=== PATIENT | male | born 1985 | race African-American/Black ===

== ENCOUNTER 2018-04-27 06:38 | Emergency (ER) | payer SELFPAY, MEDICAID ==
[2018-04-27] MEDS: predniSONE 20 MG TAB PO (07:54)
[2018-04-27] MEDS: IPRATROPIUM 0.5MG/ALBUTEROL 2.5MG INH SOL UD 3ML (DUONEB)(J7620) NEB (08:05)
== END 2018-04-27 08:24 | disposition home or self-care (01) ==
LOC: M ED 06:38
DX: J06.9 Acute upper respiratory infection, unspecified (principal); F17.200 Nicotine dependence, unspecified, uncomplicated
CPT/HCPCS: 71046

== ENCOUNTER → 2018-09-19 | Outpatient (CLI) | payer SELFPAY ==
[~2018-09-19] MED LIST: IPRA0.00 NEB; PRED20TA PO; ZITHTAB PO
== END ==
LOC: M OUTALCOH 07:52
PROVIDERS: ATTEND Psychiatry & Neurology Psychiatry
DX: Z03.89 Encounter for observation for other suspected diseases and conditions ruled out (principal)

== ENCOUNTER 2019-06-08 11:35 | Emergency (ER) | payer OTHER, SELFPAY ==
[~2019-06-08] VITALS: Ht 177.8 cm; Wt 78.0 kg
[2019-06-08 11:35] VITALS: BP 138/95
[2019-06-08] MEDS ORDERED: CLEO300C2 PO (13:29)
[2019-06-08] MEDS ORDERED: KETO10TAB PO (13:29)
[2019-06-08] MEDS ORDERED: CLINDAMYCIN 150 MG CAP PO ONE (13:30)
[2019-06-08] MEDS ORDERED: KETOROLAC TROMETHAMINE 10 MG TAB PO ONE (13:30)
== END 2019-06-08 13:36 | disposition home or self-care (01) ==
LOC: M ED 11:35
DX: K04.7 Periapical abscess without sinus (principal); K08.89 Other specified disorders of teeth and supporting structures

== ENCOUNTER 2020-03-30 22:20 | Inpatient (IN) | payer OTHER ==
[~2020-03-30 22:20] MED LIST changes: +BOOSTRIX/ADACEL VACCINE (DIPHTH/PERTUSS/ACELL/TETANUS) 0.5ML SYR As Ordered ONE; +BOOSTRIX/ADACEL VACCINE (DIPHTH/PERTUSS/ACELL/TETANUS) 0.5ML SYR ONE; +CLEO300C2 PO; +HYDROMORPHONE HCL 0.5 MG/ 0.5 ML SYRINGE (J1170 PER 1) As Ordered ONE; +HYDROMORPHONE HCL 0.5 MG/ 0.5 ML SYRINGE (J1170 PER 1) ONE; +ISOVUE-370 76% 100ML VIAL As Ordered ONE; +KETO10TAB PO; +MORPHINE 2 MG/ML 1ML VIAL (J2270) As Ordered ONE; +MORPHINE 2 MG/ML 1ML VIAL (J2270) ONE; +UNASYN 3 GM VIAL As Ordered ONE; +UNASYN 3 GM VIAL ONE
[2020-03-31] MEDS ORDERED: ceFAZolin 2 GM/D5W 50 ML IV BAG (J0690 PER 500MG) As Ordered ONE
[2020-03-31] MEDS ORDERED: BUPIVACAINE HCL 0.5% 30 ML VIAL As Ordered ONE
[2020-03-31] MEDS ORDERED: propofoL 200 MG/20 ML VIAL As Ordered ONE (00:13)
[2020-03-31] MEDS ORDERED: HYDROmorphone HCL 2 MG/ML 1ML VIAL (J1170) As Ordered ONE (00:13)
[2020-03-31] MEDS ORDERED: fentaNYL 100 MCG/2 ML INJECTION (J3010) As Ordered ONE (00:13)
[2020-03-31] MEDS ORDERED: MIDAZOLAM INJ 2MG/2ML VIAL (J2250 PER 1MG) As Ordered ONE (00:13)
[2020-03-31] MEDS ORDERED: LIDOCAINE 2% 100MG/5ML SDV (FOR ANES.) As Ordered ONE (00:13)
[2020-03-31] MEDS ORDERED: ONDANSETRON 4MG/2ML VIAL As Ordered ONE (00:13)
[2020-03-31] MEDS ORDERED: dexameTHASONE 4 MG/ML 1ML VIAL (J1100 PER 1MG) As Ordered ONE (00:13)
[2020-03-31] MEDS ORDERED: KETOROLAC 60MG 2ML VIAL As Ordered ONE (00:13)
[2020-03-31] MEDS ORDERED: UNASYN 3 GM VIAL ONE ×2 (04:26→09:01)
[2020-03-31] MEDS ORDERED: UNASYN 3 GM VIAL As Ordered ONE ×2 (04:26→09:02)
[2020-03-31] MEDS ORDERED: KETOROLAC 30 MG/ML 1ML VIAL As Ordered ONE (04:26)
[2020-03-31] MEDS ORDERED: KETOROLAC 30 MG/ML 1ML VIAL ONE (04:26)
[2020-03-31] MEDS ORDERED: MORPHINE 4 MG/ML 1ML VIAL/SYRINGE (J2270) As Ordered ONE (05:43)
[2020-03-31] MEDS ORDERED: MORPHINE 4 MG/ML 1ML VIAL/SYRINGE (J2270) ONE (05:43)
[2020-03-31] MEDS ORDERED: PANTOPRAZOLE 40MG VIAL (C9113 PER 1) ONE (09:01)
[2020-03-31] MEDS ORDERED: PANTOPRAZOLE 40MG VIAL (C9113 PER 1) As Ordered ONE (09:01)
[2020-04-28 11:02] LABS: APPEARANCE, URINE CLEAR (CLEAR); COLOR, URINE YELLOW (YELLOW)
[2020-04-28 11:03] LABS: BACTERIA, URINE AUTO NEGATIVE (NEGATIVE); BILIRUBIN, URINE AUTO NEGATIVE (NEGATIVE); BLOOD, URINE BLOOD NEGATIVE (NEGATIVE); GLUCOSE, URINE (UA) AUTO NEGATIVE (NEGATIVE); KETONE, URINE AUTO TRACE mg/dL (NEGATIVE); LEUKOCYTE ESTERASE, URINE AUTO NEGATIVE (NEGATIVE); MUCUS, URINE SMALL (NEGATIVE); NITRITE, URINE AUTO NEGATIVE (NEGATIVE); PROTEIN, URINE AUTO 1+ mg/dL (NEGATIVE); RBC, URINE AUTO 68 /HPF (0-3); SPECIFIC GRAVITY URINE AUTO 1.059 (1.002-1.035); SQUAMOUS EPITHELIAL CELL UR AU 0 /HPF (0-6); UROBILINOGEN, URINE AUTO 0.2 mg/dL (0.0-2.0); WBC, URINE AUTO 4 /HPF (0-3)
[2020-04-28 11:26] LABS: BASO # 0.1 10^3/uL (0.0-0.2); BASO % 0.4 % (0.0-1.0); EOS # 0.2 10^3/uL (0.0-0.5); EOS % 1.2 % (0.0-3.0); HEMATOCRIT 47.6 % (42.0-52.0); HEMOGLOBIN 15.8 g/dl (13.5-17.5); LYMPH # 2.6 10^3/uL (1.5-5.0); LYMPH % 18.6 % (24.0-44.0); MEAN CORPUSCULAR HEMOGLOBIN 30.1 pg (27.0-33.0); MEAN CORPUSCULAR HGB CONC 33.2 g/dl (32.0-36.5); MEAN CORPUSCULAR VOLUME 90.7 fl (80.0-96.0); MONO # 0.7 10^3/uL (0.0-0.8); MONO % 5.2 % (0.0-5.0); NEUTROPHILS # 10.3 10^3/uL (1.5-8.5); PLATELET COUNT, AUTOMATED 262 10^3/uL (150-450); RED BLOOD COUNT 5.25 10^6/uL (4.30-6.10); WHITE BLOOD COUNT 13.9 10^3/uL (4.0-10.0)
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
--- NOTE | 2020-06-02 13:10 | RO ---
DATE OF OPERATION: 03/30/2020 PREOPERATIVE DIAGNOSES: * Left elbow joint traumatic arthrotomy. * Left elbow complex laceration. * Left elbow foreign bodies. POSTOPERATIVE DIAGNOSES: * Left elbow joint traumatic arthrotomy. * Left elbow complex laceration. * Left elbow foreign bodies. PROCEDURES: * Left elbow joint irrigation and debridement. * Left elbow laceration irrigation and debridement including skin, superficial and deep fascia, muscle. * Left elbow foreign body removal. * Left elbow complex laceration repair. SURGEON: Dr. Luis Alberto Hercules BUILDINGS PAINTER: None. ANESTHESIA: General. ITRAVENOUS FLUIDS: Lactated ringers. ESTIMATED BLOOD LOSS: 25 mL. IMPLANTS: None. CLOSURE: Nylon. DESCRIPTION OF PROCEDURE: The patient was identified in the preoperative holding area. The left elbow was marked. He received intravenous (IV) antibiotics and tetanus had been updated. He was brought to the operating room and placed supine on a well-padded operating room (OR) table. General anesthesia was induced. The left arm was positioned on the hand table. A pre-scrub with chlorhexidine was performed. Well-padded tourniquet applied to the left upper arm. He received appropriate IV antibiotics. He was re-dosed within 30 minutes of incision. The left arm was then prepped and draped in a normal sterile fashion with Betadine. Time-out was performed per hospital protocol. The left arm was exsanguinated via gravity, and then the tourniquet inflated to 250 mmHg. The skin edges of the laceration were contaminated with debris and appeared nonviable and these were sharply incised with a 15-blade. I did extend the laceration approximately 2 cm proximal and posterior to get improved exposure. Laceration was over the lateral proximal forearm and measured approximately 3 cm. There was a separate just under 1 cm laceration just distal to that. With one finger palpation, I was able to palpate the lateral border of the ulna. I was able to palpate the arthrotomy at the lateral aspect of the elbow joint. There were pieces of grass, wood, bark, and gravel. All gross contamination was removed with a curette, forceps, and a hemostat. A hematoma was evacuated. A portion of the anconeus appeared nonviable, it did not contract with cautery, and the nonviable necrotic muscle was excised with Metzenbaum scissors. Once all gross contamination and nonviable tissue had been sharply debrided, I then irrigated the elbow joint first with 3 liters of lactated ringers with cystoscopy tubing. I then irrigated the remainder of the wound with another 6 liters, so a total of 9 liters of lactated ringers. No additional necrotic tissue or debris was encountered, and I felt that wound closure was appropriate. I assessed the patients medial and lateral stability and there was no instability detected. The lateral ulnar collateral ligament was identified and appeared intact. I used 2-0 Monocryl to close the arthrotomy with the forearm in pronation to avoid damage to the PIN. I then approximated the anconeus muscle with some of its fascia and was able to repair that to the extensor carpi radialis longus (ECRL) fascia to avoid space. Next, the wound was re- irrigated and the laceration repaired with a 3-0 Monocryl and then a running 3-0 nylon. The small separate laceration was then closed with nylon in a [id number] fashion. The tourniquet was let down at 53 minutes with excellent reperfusion. There was a 2+ radial pulse. I injected 20 mL of 0.5% Marcaine without epinephrine for local anesthetic. Bulky sterile dressing applied and then he was placed into a sling. He was extubated and transferred to the post anesthesia care unit (PACU) in stable condition. DISPOSITION: The patient should have 24 hours of IV antibiotic prophylaxis due to the arthrotomy. He should not do any lifting or reaching with the arm, but there are no restrictions on finger, wrist, or shoulder range of motion, and he can work on passive and assisted elbow range of motion within comfort. The patient will remain on the general surgery service per our trauma protocol. SARBJIT
[2020-06-17 08:14] LABS: ALT/SGPT 24 U/L (12-78); BILIRUBIN,TOTAL 0.4 MG/DL (0.2-1.0); BLOOD UREA NITROGEN 21 MG/DL (7-18); CALCIUM LEVEL 9.1 MG/DL (8.5-10.1); CARBON DIOXIDE LEVEL 26 MEQ/L (21-32); CHLORIDE LEVEL 110 MEQ/L (98-107); CREATININE FOR GFR 1.12 MG/DL (0.70-1.30); GLOMERULAR FILTRATION RATE > 60.0 (>60); GLUCOSE, FASTING 122 MG/DL (70-100); LIPASE 111 U/L (73-393); POTASSIUM SERUM 3.6 MEQ/L (3.5-5.1); SODIUM LEVEL 143 MEQ/L (136-145); TOTAL PROTEIN 7.3 GM/DL (6.4-8.2)
== END 2020-03-31 12:43 | disposition left against medical advice (07) | DRG 364 ==
LOC: M ED 22:20 → M MS5PR 03-31 01:05
PROVIDERS: ADMIT Orthopaedic Surgery; ATTEND Orthopaedic Surgery
PROC: 0X9C0ZZ Drainage of Left Elbow Region, Open Approach (ICD-10-PCS; principal; 2020-03-30)
PROC: 0K9B0ZZ Drainage of Left Lower Arm and Wrist Muscle, Open Approach (ICD-10-PCS; 2020-03-30)
DX: S51.022A Laceration with foreign body of left elbow, initial encounter (principal); S32.009A Unspecified fracture of unspecified lumbar vertebra, initial encounter for closed fracture; V27.9XXA Unspecified motorcycle rider injured in collision with fixed or stationary object in traffic accident, initial encounter

== ENCOUNTER 2021-01-12 17:44 | Emergency (ER) | payer OTHER ==
[~2021-01-12] VITALS: Ht 177.8 cm; Wt 75.0 kg
[~2021-01-12 17:44] MED LIST changes: -BOOSTRIX/ADACEL VACCINE (DIPHTH/PERTUSS/ACELL/TETANUS) 0.5ML SYR As Ordered ONE; -BOOSTRIX/ADACEL VACCINE (DIPHTH/PERTUSS/ACELL/TETANUS) 0.5ML SYR ONE; -HYDROMORPHONE HCL 0.5 MG/ 0.5 ML SYRINGE (J1170 PER 1) As Ordered ONE; -HYDROMORPHONE HCL 0.5 MG/ 0.5 ML SYRINGE (J1170 PER 1) ONE; -ISOVUE-370 76% 100ML VIAL As Ordered ONE; -MORPHINE 2 MG/ML 1ML VIAL (J2270) As Ordered ONE; -MORPHINE 2 MG/ML 1ML VIAL (J2270) ONE; -UNASYN 3 GM VIAL As Ordered ONE; -UNASYN 3 GM VIAL ONE
[2021-01-12] MEDS ORDERED: COMBIVENT RESPIMAT 100-20MCG INHALER 4GM INH ONE (18:40)
[2021-01-12] MEDS ORDERED: methylPREDNISolone 125MG 2ML VIAL IV ONE (18:40)
[2021-01-12 19:42] LABS: BASO % 0.2 % (0.0-1.0); EOS # 0.1 10^3/uL (0.0-0.5); EOS % 1.3 % (0.0-3.0); LYMPH # 1.1 10^3/uL (1.5-5.0); LYMPH % 10.4 % (24.0-44.0); MEAN CORPUSCULAR HGB CONC 33.3 g/dl (32.0-36.5); MONO # 0.7 10^3/uL (0.0-0.8); MONO % 6.5 % (2.0-8.0); NEUTROPHILS # 8.4 10^3/uL (1.5-8.5); PLATELET COUNT, AUTOMATED 230 10^3/uL (150-450); WHITE BLOOD COUNT 10.4 10^3/uL (4.0-10.0)
[2021-01-12 19:45] VITALS: BP 123/70
[2021-01-12 20:24] LABS: ALBUMIN 3.7 GM/DL (3.2-5.2); ALT/SGPT 25 U/L (12-78); BILIRUBIN,DIRECT 0.2 MG/DL (0.0-0.2); BILIRUBIN,TOTAL 0.6 MG/DL (0.2-1.0); BLOOD UREA NITROGEN 19 MG/DL (7-18); CALCIUM LEVEL 8.7 MG/DL (8.5-10.1); CARBON DIOXIDE LEVEL 29 MEQ/L (21-32); CHLORIDE LEVEL 108 MEQ/L (98-107); CK-MB VALUE MASS 1.2 NG/ML (<3.6); CPK CREATINE PHOSPHOKINASE 510 U/L (39-308); CREATININE FOR GFR 0.98 MG/DL (0.70-1.30); GLOMERULAR FILTRATION RATE > 60.0 (>60); GLUCOSE, FASTING 88 MG/DL (70-100); MB/CK RELATIVE INDEX 0.24 (< OR =4); NT-PRO BNP 58 PG/ML (<125); POTASSIUM SERUM 3.5 MEQ/L (3.5-5.1); SODIUM LEVEL 142 MEQ/L (136-145); THYROID STIMULATING HORMONE 0.918 uIU/ML (0.358-3.740); TOTAL PROTEIN 6.9 GM/DL (6.4-8.2); TROPONIN I < 0.02 NG/ML (< 0.10)
--- NOTE | 2021-01-13 20:25 | ECGEPIP ---
[facility] - ED Test Date: 2021-01-12 Pat Name: BENJA DURAN Department: Room: - Gender: Male Chart Clerk: : [id number] Requested By: ZA Palmer Order Number: [id number] Reading MD: Arleen Interiano Measurements Intervals [place] Rate: 82 P: 39 OK: 194 QRS: 77 QRSD: 92 T: 50 QT: 370 QTc: 432 Interpretive Statements Normal sinus rhythm No prior Electronically Signed on 01-13-2021 20:24:49 EDT by Arleen Interiano
== END 2021-01-12 20:04 | disposition left against medical advice (07) ==
LOC: EDBD 17:44 → M ED 17:44
DX: R06.02 Shortness of breath (principal); R05 Cough; Z53.9 Procedure and treatment not carried out, unspecified reason; J45.909 Unspecified asthma, uncomplicated; F17.200 Nicotine dependence, unspecified, uncomplicated
CPT/HCPCS: 80048; 80076; 82550; 82553; 83880; 84443; 85025; 85379; 87040; 87798; 93005; 93041; 94760; 96374; 99285; J2930

== ENCOUNTER 2021-11-13 22:50 | Emergency (ER) | payer OTHER ==
[~2021-11-13] VITALS: Ht 177.8 cm; Wt 79.0 kg
[2021-11-13] MEDS ORDERED: predniSONE 20 MG TAB PO ONE (23:00)
[2021-11-13] MEDS ORDERED: IPRATROPIUM 0.5MG/ALBUTEROL 2.5MG INH SOL UD 3ML (DUONEB) NEB ONE (23:00)
[2021-11-13 23:24] LABS: BASO % 0.4 % (0.0-1.0); EOS # 0.2 10^3/uL (0.0-0.5); EOS % 1.6 % (0.0-3.0); HEMATOCRIT 45.5 % (42.0-52.0); HEMOGLOBIN 15.6 g/dl (13.5-17.5); LYMPH % 17.8 % (24.0-44.0); MEAN CORPUSCULAR HEMOGLOBIN 30.5 pg (27.0-33.0); MEAN CORPUSCULAR HGB CONC 34.3 g/dl (32.0-36.5); MEAN CORPUSCULAR VOLUME 88.9 fl (80.0-96.0); MONO # 0.7 10^3/uL (0.0-0.8); NEUTROPHILS # 8.4 10^3/uL (1.5-8.5); NEUTROPHILS % 73.8 % (36.0-66.0); PLATELET COUNT, AUTOMATED 234 10^3/uL (150-450); RED BLOOD COUNT 5.12 10^6/uL (4.30-6.10); WHITE BLOOD COUNT 11.4 10^3/uL (4.0-10.0)
[2021-11-13 23:58] LABS: BLOOD UREA NITROGEN 14 MG/DL (7-18); CARBON DIOXIDE LEVEL 30 MEQ/L (21-32); CHLORIDE LEVEL 105 MEQ/L (98-107); CREATININE FOR GFR 0.96 MG/DL (0.70-1.30); GLOMERULAR FILTRATION RATE > 60.0 (>60); GLUCOSE, FASTING 90 MG/DL (70-100); POTASSIUM SERUM 3.5 MEQ/L (3.5-5.1); SODIUM LEVEL 141 MEQ/L (136-145)
[2021-11-14 00:15] VITALS: BP 124/74
[2021-11-14] MEDS ORDERED: VENTAER INH (02:34)
[2021-11-14] MEDS ORDERED: PRED20TA PO (02:34)
== END 2021-11-14 02:44 | disposition home or self-care (01) ==
LOC: M ED 22:50
DX: B34.8 Other viral infections of unspecified site (principal); J06.9 Acute upper respiratory infection, unspecified; J68.9 Unspecified respiratory condition due to chemicals, gases, fumes and vapors; F17.200 Nicotine dependence, unspecified, uncomplicated
CPT/HCPCS: 36415; 71046; 80048; 85025; 87798; 93005; 94640; 99284; J7512

== ENCOUNTER 2022-12-21 19:08 | Emergency (ER) | payer OTHER, MEDICAID ==
[~2022-12-21] VITALS: Ht 177.8 cm; Wt 77.2 kg
[~2022-12-21 19:08] MED LIST changes: +VENTAER INH
[2022-12-21] MEDS ORDERED: ACETAMINOPHEN 325 MG TAB PO ONE (20:20)
[2022-12-21] MEDS ORDERED: NS 1,000 ML IV ONE (20:20)
[2022-12-21 21:01] LABS: BASO % 0.3 % (0.0-1.0); EOS % 0.1 % (0.0-3.0); HEMOGLOBIN 13.9 g/dl (13.5-17.5); LYMPH % 8.2 % (24.0-44.0); MEAN CORPUSCULAR HEMOGLOBIN 29.2 pg (27.0-33.0); MEAN CORPUSCULAR HGB CONC 33.1 g/dl (32.0-36.5); MEAN CORPUSCULAR VOLUME 88.2 fl (80.0-96.0); MONO # 0.7 10^3/uL (0.0-0.8); MONO % 5.6 % (2.0-8.0); NEUTROPHILS # 10.1 10^3/uL (1.5-8.5); NEUTROPHILS % 85.3 % (36.0-66.0); PLATELET COUNT, AUTOMATED 201 10^3/uL (150-450); RED BLOOD COUNT 4.76 10^6/uL (4.30-6.10); WHITE BLOOD COUNT 11.9 10^3/uL (4.0-10.0)
[2022-12-21 21:25] LABS: ALBUMIN 3.5 G/DL (3.2-5.2); ALKALINE PHOSPHATASE 82 U/L (46-116); ALT/SGPT 121 U/L (7.0-40); AST/SGOT 42 U/L (<34); BILIRUBIN,DIRECT 0.2 MG/DL (<0.4); BILIRUBIN,TOTAL 0.6 MG/DL (0.3-1.2); BLOOD UREA NITROGEN 17 MG/DL (9-23); CALCIUM LEVEL 8.6 MG/DL (8.5-10.1); CARBON DIOXIDE LEVEL 27 MMOL/L (20-31); CHLORIDE LEVEL 102 MMOL/L (98-107); CREATININE FOR GFR 0.81 MG/DL (0.70-1.30); GLOMERULAR FILTRATION RATE > 60.0 (>60); GLUCOSE, FASTING 111 MG/DL (60-100); POTASSIUM SERUM 3.8 MMOL/L (3.5-5.1); SODIUM LEVEL 136 MMOL/L (136-145); TOTAL PROTEIN 6.3 G/DL (5.7-8.2)
[2022-12-21] MEDS ORDERED: ISOVUE-370 76% 100ML VIAL As Ordered ONE (21:41)
[2022-12-21 23:24] VITALS: BP 117/66
[2022-12-21] MEDS ORDERED: CEPHALEXIN 500 MG CAP PO ONE (23:30)
[2022-12-21] MEDS ORDERED: ALBU6.7H6 INH (23:30)
[2022-12-21] MEDS ORDERED: CEPH500C PO (23:30)
== END 2022-12-21 23:43 | disposition home or self-care (01) ==
LOC: M ED 19:08
DX: J06.9 Acute upper respiratory infection, unspecified (principal); L03.116 Cellulitis of left lower limb; J45.909 Unspecified asthma, uncomplicated; Z87.891 Personal history of nicotine dependence; Z79.52 Long term (current) use of systemic steroids
CPT/HCPCS: 36415; 71046; 71275; 80048; 80076; 83605; 85025; 85379; 87040; 93005; 93971; 99284; Q9967

== ENCOUNTER 2024-10-11 18:02 | Emergency (ER) | payer OTHER, SELFPAY ==
[~2024-10-11] VITALS: Ht 177.8 cm; Wt 84.7 kg
[~2024-10-11 18:02] MED LIST changes: +ALBU6.7H6 INH; +CEPH500C PO
[2024-10-11] MEDS: NS 500 ML IV ONE (18:15)
[2024-10-11 18:26] LABS: VENOUS BASE EXCESS 3.2 (-2.0-2.0); VENOUS HCO3 28.9 MMOL/L (23.0-27.0); VENOUS PARTIAL PRESSURE CO2 47.5 mmHg (38.0-50.0); VENOUS PARTIAL PRESSURE O2 45.3 mmHg (30.0-50.0); VENOUS PH 7.402 UNITS (7.330-7.430); VENOUS STANDARD HCO3 26.8 MMOL/L; VENOUS TOTAL CO2 30.4 MMOL/L (24.0-28.0)
[2024-10-11] MEDS ORDERED: ISOVUE-370 76% 100ML VIAL As Ordered ONE (18:30)
[2024-10-11 18:31] LABS: BASO % 0.6 % (0.0-1.0); EOS % 0.6 % (0.0-3.0); HEMATOCRIT 47.8 % (42.0-52.0); HEMOGLOBIN 16.3 g/dl (13.5-17.5); LYMPH # 1.5 10^3/uL (1.5-5.0); LYMPH % 20.2 % (24.0-44.0); MEAN CORPUSCULAR HEMOGLOBIN 30.2 pg (27.0-33.0); MEAN CORPUSCULAR HGB CONC 34.1 g/dl (32.0-36.5); MEAN CORPUSCULAR VOLUME 88.5 fl (80.0-96.0); MONO # 0.5 10^3/uL (0.0-0.8); MONO % 6.4 % (2.0-8.0); NEUTROPHILS # 5.2 10^3/uL (1.5-8.5); NEUTROPHILS % 71.9 % (36.0-66.0); PLATELET COUNT, AUTOMATED 232 10^3/uL (150-450); WHITE BLOOD COUNT 7.2 10^3/uL (4.0-10.0)
[2024-10-11 18:47] LABS: INR 1.07; PARTIAL THROMBOPLASTIN TIME 26.4 SECONDS (24.8-34.2); PROTHROMBIN TIME 14.2 SECONDS (12.5-14.5)
[2024-10-11 18:53] LABS: CK-MB VALUE MASS 1.5 NG/ML (<3.6); ETHYL ALCOHOL (ETHANOL) < 0.003 % (0.000-0.010); LIPASE 27 U/L (12-53)
[2024-10-11 18:54] LABS: AMYLASE 57 U/L (30-118)
[2024-10-11 18:55] LABS: ALBUMIN 4.2 G/DL (3.2-5.2); ALKALINE PHOSPHATASE 84 U/L (40-129); ALT/SGPT 21 U/L (7.0-40); AST/SGOT 23 U/L (<34); BILIRUBIN,DIRECT 0.3 MG/DL (<0.4); BILIRUBIN,TOTAL 0.7 MG/DL (0.3-1.2); BLOOD UREA NITROGEN 19 MG/DL (9-23); CALCIUM LEVEL 9.7 MG/DL (8.5-10.1); CARBON DIOXIDE LEVEL 28 MMOL/L (20-31); CHLORIDE LEVEL 107 MMOL/L (98-107); CREATININE FOR GFR 0.96 MG/DL (0.70-1.30); GLOMERULAR FILTRATION RATE > 60.0 (>60); GLUCOSE, FASTING 110 MG/DL (60-100); POTASSIUM SERUM 3.8 MMOL/L (3.5-5.1); SALICYLATE LEVEL < 3.0 MG/DL (<30); SODIUM LEVEL 145 MMOL/L (136-145); TOTAL PROTEIN 7.6 G/DL (5.7-8.2)
[2024-10-11] MEDS: ACETAMINOPHEN *IV* 1,000 MG in IV 1 EA IV ONE (18:56)
[2024-10-11 18:59] LABS: CPK CREATINE PHOSPHOKINASE 314 U/L (46-171); MB/CK RELATIVE INDEX 0.47 (< OR =4)
[2024-10-11 19:56] LABS: CK-MB VALUE MASS 1.2 NG/ML (<3.6)
[2024-10-11 19:57] LABS: MB/CK RELATIVE INDEX 0.4 (< OR =4)
[2024-10-11] MEDS: NS (Normal Saline) 0.9% 2,000 ML in IV 1 EA IV ONE (20:18)
[2024-10-11 20:20] LABS: AMPHETAMINES LEVEL URINE NEGATIVE (NEGATIVE); BARBITURATES URINE NEGATIVE (NEGATIVE); BENZODIAZEPINES URINE NEGATIVE (NEGATIVE); CANNABINOIDS URINE NEGATIVE (NEGATIVE); COCAINE METABOLITE URINE NEGATIVE (NEGATIVE); METHADONE URINE NEGATIVE (NEGATIVE); OPIATES URINE NEGATIVE (NEGATIVE); PHENCYCLIDINE URINE NEGATIVE (NEGATIVE)
[2024-10-12 00:23] VITALS: BP 123/79; TEMP 98; O2SAT 95
== END 2024-10-12 00:33 | disposition home or self-care (01) ==
LOC: M ED 18:02 → EDBD 18:02 → M ED 10-12 00:33
DX: T14.91XA Suicide attempt, initial encounter (principal); M54.2 Cervicalgia; R94.31 Abnormal electrocardiogram [ECG] [EKG]; F32.A Depression, unspecified
CPT/HCPCS: 70450; 70498; 71045; 71260; 72125; 80047; 80048; 80076; 80143; 80307; 82077; 82150; 82550; 82553; 82803; 83605; 83690; 84484; 85025; 85610; 85730; 87486; 87581; 87633; 87798; 93005; 93041; 94760; 96361; 96365; 99285; J0131; Q9967